=== PATIENT | female | born 1990 | race Two or more races ===

== ENCOUNTER 2018-07-04 13:22 | Emergency (ER) | payer SELFPAY ==
[~2018-07-04] VITALS: Ht 162.6 cm; Wt 63.3 kg
[2018-07-04] MEDS ORDERED: SODIUM CHLORIDE 0.9% 1,000ML IVBOLUS ONE ×2 (14:30→15:30)
[2018-07-04 14:40] LABS: RAPID INFLUENZA A Negative (Negative); RAPID INFLUENZA B Negative (Negative)
[2018-07-04 14:58] LABS: BASOPHILS # (AUTO) 0.07 x10^3/uL (0-0.1); BASOPHILS % (AUTO) 1 % (0-1); EOSINOPHILS # (AUTO) 0.05 x10^3/uL (0-0.4); EOSINOPHILS % (AUTO) 0 % (1-7); LYMPHOCYTES # (AUTO) 3.36 x10^3/uL (1-3.4); LYMPHOCYTES % (AUTO) 24 % (22-44); MD NO; MEAN CORPUSCULAR HEMOGLOBIN 30.4 pg (27.0-34.8); MEAN CORPUSCULAR HGB CONC 34.4 g/dL (32.4-35.8); MEAN CORPUSCULAR VOLUME 88.4 fL (80-100); MEAN PLATELET VOLUME 7.9 fL (7.4-10.4); MONOCYTES # (AUTO) 0.65 x10^3/uL (0.2-0.8); MONOCYTES % (AUTO) 5 % (2-9); NEUTROPHILS # (AUTO) 9.94 x10^3/uL (1.8-6.8); NEUTROPHILS % (AUTO) 71 % (42-75); PLATELET COUNT 364 x10^3/uL (130-400); RED BLOOD COUNT 5.53 x10^6/uL (3.82-5.3); RED CELL DISTRIBUTION WIDTH 12.2 % (9.6-15.2)
[2018-07-04 15:02] LABS: PH, VENOUS 7.501 pH (7.320-7.420)
--- NOTE | 2018-07-04 15:08 | NUR ---
PT PRESENTED TO ED WITH THROAT PAIN X 3 DAYS AND UNABLE TO DRINK FLUIDS. PT WITH HX: DM TYPE 1. PT PLACED IN ROOM AND PLACED ON BP, CARDIAC, AND CONT. PULSE OXIMETER. ASSESSMENT COMPLETED. PT SEEN IN PIT. IV STARTED AND BLOOD CULTURES DRAWN X 2. FAMILY AT BEDSIDE.
[2018-07-04 15:16] LABS: ANION GAP 10 mmol/L (5-15); CALCIUM 9.8 mg/dL (8.5-10.1); CHLORIDE 95 mmol/L (98-107); CREATININE 0.69 mg/dL (0.55-1.02)
[2018-07-04 15:51] LABS: ACETONE, SERUM Moderate(40mg/dL) mg/dL (Negative)
[2018-07-04] MEDS ORDERED: ONDANSETRON 2MG/ML, 2ML ONE (16:00)
[2018-07-04] MEDS ORDERED: MORPHINE SULFATE 4 MG/ML, 1ML ONE (16:00)
[2018-07-04] MEDS ORDERED: MORPHINE SULFATE 4 MG/ML, 1ML IVPush ONE (16:00)
[2018-07-04] MEDS ORDERED: ONDANSETRON 2MG/ML, 2ML IVPush ONE (16:00)
--- NOTE | 2018-07-04 16:25 | NUR ---
Dinora mirza in [facility] - 07/04/18 at 1626 by GILDARDO PT REFUSING BREATHALYZER
[2018-07-04 16:26] VITALS: BP 151/92
--- NOTE | 2018-07-04 16:26 | NUR ---
PT RESTING IN BED. PT STATING PAIN BETTER AT THIS TIME
--- NOTE | 2018-07-04 16:51 | NUR ---
BLOOD GLUCOSE 313 AFTER 2ND LITER
[2018-07-04] MEDS ORDERED: INSULIN SINGLE DOSE, ER SQ-INSULIN ONE (17:20)
[2018-07-04] MEDS ORDERED: INSULIN REGULAR 100 UNITS/ML, 3ML VIAL SQ-INSULIN ONE (17:30)
--- NOTE | 2018-07-04 17:46 | NUR ---
PT DISCHARGED WITH DISCHARGE INSTRUCTIONS AND RX. PT UP AMBULATORY AND STABLE ON FEET.
== END 2018-07-04 17:49 | disposition home or self-care (01) ==
LOC: ED 15:36
DX: J02.8 Acute pharyngitis due to other specified organisms (principal); B97.89 Other viral agents as the cause of diseases classified elsewhere; E11.65 Type 2 diabetes mellitus with hyperglycemia
CPT/HCPCS: 36415; 70360; 71046; 80048; 82010; 82803; 82962; 83605; 84145; 85025; 87040; 87081; 87147; 87400; 87880; 96361; 96372; 96374; 96375; 99284; J2405; J7030

== ENCOUNTER 2018-12-06 13:34 | Emergency (ER) | payer SELFPAY ==
[~2018-12-06] VITALS: Ht 160 cm; Wt 65.4 kg
[2018-12-06 17:00] VITALS: BP 168/119
== END 2018-12-06 17:10 | disposition home or self-care (01) ==
LOC: ED 15:44
DX: K02.9 Dental caries, unspecified (principal); E10.65 Type 1 diabetes mellitus with hyperglycemia; R51 Headache; J02.9 Acute pharyngitis, unspecified
CPT/HCPCS: 36415; 71046; 80053; 84703; 85025; 87081; 87880; 96365; 96372; 96375; 99284; J0295; J7030; 82962; 87147